=== PATIENT | male | born 1975 ===

== ENCOUNTER 2025-02-07 15:34 | Outpatient (CLI) | payer OTHER, SELFPAY ==
--- NOTE | ~2025-02-07 | CT_ITS ---
EXAMINATION: CT abdomen pelvis wo con, 02/07/2025 15:35 [employer] HISTORY: BI renal stone COMPARISON: No comparisons available. TECHNIQUE: CT scan of the abdomen and pelvis was performed without IV contrast. One or more of the following dose reduction techniques were used: automated exposure control, adjustment of the mA and/or kV according to patient size, use of iterative reconstruction technique. Unless otherwise stated, incidental findings do not require dedicated follow up imaging FINDINGS: CT abdomen: LUNG BASES: The lung bases are clear. The visualized portions of the heart and pericardium are unremarkable. LIVER: Unremarkable, liver contours intact, no lesions. SPLEEN: Unremarkable, no splenomegaly. KIDNEYS: Right Kidney: Right kidney midpole 2 mm right renal calculus, no hydronephrosis or hydroureter. Left Kidney: Left kidney midpole 2 mm calculus, no hydronephrosis or hydroureter. Left kidney midpole simple cyst 4 x 4 cm. ADRENAL GLANDS: Unremarkable. PANCREAS: Unremarkable. GALLBLADDER/BILIARY: Unremarkable. No biliary dilatation. STOMACH AND ESOPHAGUS: Visualized stomach and esophagus within normal limits. BOWEL/MESENTERY: Moderate fecal content, no colitis or diverticulitis. Appendix normal. Mesentery normal. No thickened or dilated loops of small bowel. ADENOPATHY/RETROPERITONEUM: No lymphadenopathy. AORTA/VASCULATURE: Normal caliber aorta. FREE FLUID OR FREE AIR: None. CT pelvis: SOLID ORGANS/REPRODUCTIVE: Prostate appears enlarged, correlate with PSA. BLADDER: Within normal limits. OSSEOUS STRUCTURES: Partial sacralization of L5 on the left side, no lytic lesions. OVERLYING SOFT TISSUES: Small fat-containing umbilical hernia. Small bilateral fat-containing inguinal hernia. IMPRESSION: Bilateral renal calculi. No hydronephrosis Reviewed, dictated and finalized at location P. S ASSEMBLER
== END 2025-02-07 15:35 | disposition home or self-care (01) ==
LOC: MICIMG 15:36
PROVIDERS: Visit Provider Family Medicine
DX: N20.0 Calculus of kidney (principal)
CPT/HCPCS: 74176